=== PATIENT | female | born 1935 | race Caucasian/White ===

== ENCOUNTER → 2016-05-03 | Outpatient (CLI) | payer OTHER | LOC: FIMAGING 12:35 | PROVIDERS: ATTEND Internal Medicine | DX: I77.1 Stricture of artery (principal) ==

== ENCOUNTER → 2016-05-10 | Day surgery (SDC) | payer OTHER ==
[~2016-05-10] MED LIST: CLOPIDOGREL BISULFATE 75 MG TAB PO ONE; HEPARIN 10,000 UNIT/10 ML MDV ONE; HYDROCODONE/APAP 5/325 TAB PO PRN; IOPAMIDOL (ISOVUE-300) 100 ML BTL IV ONE; MIDAZOLAM 2 MG/2 ML VIAL ONE; ONDANSETRON 4 MG/2 ML VIAL IVP PRN; ONDANSETRON DISINTEGRATING 4 MG TAB PO PRN; OXYCODONE/APAP 5/325 TAB PO PRN; fentaNYL 100 MCG/2 ML INJ ONE
[2016-05-10 09:22] LABS: INR 1.05 (0.83-1.16); PROTIME(PATIENT) 13.6 SEC (12.0-15.0)
[2016-05-10 09:23] LABS: APTT 29.9 SEC (23.0-38.0)
== END | disposition home or self-care (01) ==
LOC: FIMAGING 07:33
PROVIDERS: ATTEND Radiology Diagnostic Radiology
PROC: 047C3D6 (ICD-10-PCS; principal; 2016-05-10)
PROC: 047L3ZZ Dilation of Left Femoral Artery, Percutaneous Approach (ICD-10-PCS; principal; 2016-05-10)
PROC: 047F3DZ Dilation of Left Internal Iliac Artery with Intraluminal Device, Percutaneous Approach (ICD-10-PCS; principal; 2016-05-10)
DX: I73.9 Peripheral vascular disease, unspecified (principal)
CPT/HCPCS: 37221; 37224; 75630; 99152; 99153; C1769; C1894; C1725; C1760; C1874; C1876; J1644; J2250; J3010; Q9967